=== PATIENT | female | born 1995 | race African-American/Black ===

== ENCOUNTER 2017-03-05 19:57 | Emergency (ER) | payer MEDICAID ==
[~2017-03-05] VITALS: Ht 154.9 cm; Wt 90.0 kg
[2017-03-05 19:59] VITALS: BP 162/72
== END 2017-03-06 01:00 | disposition left against medical advice (07) ==
LOC: ER 21:00
DX: F41.9 Anxiety disorder, unspecified (principal); Z53.21 Procedure and treatment not carried out due to patient leaving prior to being seen by health care provider

== ENCOUNTER 2020-07-22 14:06 | Emergency (ER) | payer MEDICAID ==
[~2020-07-22] VITALS: Ht 154.9 cm; Wt 75.0 kg
[2020-07-22 16:32] LABS: BASOPHILS % 0.6 % (0.0-2.0); EOSINOPHILS % 1.9 % (0.0-5.0); HEMATOCRIT. 38.8 % (36.0-48.0); LYMPHOCYTES % 35.6 % (20.0-50.0); MEAN CORPUSCULAR HEMOGLOBIN 31.1 pg (28.0-32.0); MEAN CORPUSCULAR VOLUME 92.7 fL (81.0-99.0); MEAN PLATELET VOLUME 8.6 fl (7.4-10.4); MONOCYTES % 8.8 % (2.0-8.0); NEUTROPHILS % 53.1 % (40.0-76.0); PLATELET 291 x1000/uL (130-400); RED BLOOD CELL COUNT 4.19 mill/uL (4.2-5.4); RED CELL DISTRIBUTION WIDTH 13.5 % (11.6-14.6)
[2020-07-22 16:37] LABS: CHLORIDE 106 mEq/L (98-107)
[2020-07-22 16:48] LABS: B-HCG QUANTITATIVE 133 mIU/mL (<3)
[2020-07-22 18:24] VITALS: BP 117/68
== END 2020-07-22 18:06 | disposition home or self-care (01) ==
LOC: ER 14:06
DX: O26.851 Spotting complicating pregnancy, first trimester (principal); Z3A.01 Less than 8 weeks gestation of pregnancy
CPT/HCPCS: 36415; 76801; 80053; 81025; 84702; 85025; 86850; 86900; 93005; 99285

== ENCOUNTER 2020-07-30 06:43 | Emergency (ER) | payer MEDICAID ==
[~2020-07-30] VITALS: Ht 154.9 cm; Wt 77.0 kg
[2020-07-30 08:56] LABS: BASOPHILS % 0.5 % (0.0-2.0); EOSINOPHILS % 3.1 % (0.0-5.0); HEMATOCRIT. 39.9 % (36.0-48.0); HEMOGLOBIN. 13.3 g/dL (12.0-16.0); MEAN CORPUSCULAR HEMOGLOBIN 31.3 pg (28.0-32.0); MEAN CORPUSCULAR VOLUME 93.8 fL (81.0-99.0); MEAN PLATELET VOLUME 8.1 fl (7.4-10.4); MONOCYTES % 13.1 % (2.0-8.0); NEUTROPHILS % 58.3 % (40.0-76.0); PLATELET 307 x1000/uL (130-400); RED BLOOD CELL COUNT 4.26 mill/uL (4.2-5.4); RED CELL DISTRIBUTION WIDTH 13.9 % (11.6-14.6)
[2020-07-30 09:07] LABS: CHLORIDE 107 mEq/L (98-107)
[2020-07-30 09:21] LABS: B-HCG QUANTITATIVE 105 mIU/mL (<3)
[2020-07-30 09:56] VITALS: BP 116/70
[2020-07-30 10:04] LABS: CLARITY URINE CLOUDY (CLEAR); COLOR URINE YELLOW (YELLOW); KETONES URINE NEGATIVE (NEGATIVE); LEUKOCYTE ESTERASE URINE 1+ (NEGATIVE); NITRITE URINE NEGATIVE (NEGATIVE); OCCULT BLOOD URINE 3+ (NEGATIVE); PROTEIN URINE TRACE (NEGATIVE); SPECIFIC GRAVITY URINE 1.024 (1.005-1.030); UROBILINOGEN URINE 0.2 E.U./dL (0.2-1.0)
== END 2020-07-30 09:58 | disposition home or self-care (01) ==
LOC: ER 06:43
DX: O03.9 Complete or unspecified spontaneous abortion without complication (principal); J45.909 Unspecified asthma, uncomplicated; F15.10 Other stimulant abuse, uncomplicated; F14.10 Cocaine abuse, uncomplicated; F12.10 Cannabis abuse, uncomplicated; Z90.89 Acquired absence of other organs
CPT/HCPCS: 36415; 76801; 80053; 81003; 81025; 84702; 85025; 86850; 86900; 93005; 99285

== ENCOUNTER 2020-10-28 09:15 | Emergency (ER) | payer MEDICAID ==
[~2020-10-28] VITALS: Ht 154.9 cm; Wt 83.0 kg
[2020-10-28 10:37] VITALS: BP 107/61
[2020-10-28 10:51] LABS: HCG SCREEN NEGATIVE
== END 2020-10-28 11:14 | disposition home or self-care (01) ==
LOC: ER 09:15
DX: Z32.02 Encounter for pregnancy test, result negative (principal); R03.0 Elevated blood-pressure reading, without diagnosis of hypertension; J45.909 Unspecified asthma, uncomplicated; F14.10 Cocaine abuse, uncomplicated; F15.10 Other stimulant abuse, uncomplicated; F12.90 Cannabis use, unspecified, uncomplicated; Z98.890 Other specified postprocedural states
CPT/HCPCS: 81025; 84703; 99283

== ENCOUNTER 2020-12-09 19:19 | Emergency (ER) | payer MEDICAID ==
[~2020-12-09] VITALS: Ht 154.9 cm; Wt 75.0 kg
[2020-12-09 20:30] VITALS: BP 115/69
[2020-12-09 20:31] LABS: CLARITY URINE CLEAR (CLEAR); COLOR URINE YELLOW (YELLOW); KETONES URINE NEGATIVE (NEGATIVE); LEUKOCYTE ESTERASE URINE NEGATIVE (NEGATIVE); NITRITE URINE NEGATIVE (NEGATIVE); OCCULT BLOOD URINE NEGATIVE (NEGATIVE); PROTEIN URINE NEGATIVE (NEGATIVE); SPECIFIC GRAVITY URINE 1.029 (1.005-1.030)
== END 2020-12-09 21:13 | disposition home or self-care (01) ==
LOC: ER 19:19
DX: Z32.01 Encounter for pregnancy test, result positive (principal); J45.909 Unspecified asthma, uncomplicated; F14.10 Cocaine abuse, uncomplicated; F12.10 Cannabis abuse, uncomplicated; F15.10 Other stimulant abuse, uncomplicated; Z90.89 Acquired absence of other organs
CPT/HCPCS: 81003; 81025; 99283

== ENCOUNTER 2020-12-18 14:07 | Emergency (ER) | payer MEDICAID ==
[~2020-12-18] VITALS: Ht 154.9 cm; Wt 74.5 kg
[2020-12-18 19:29] LABS: BASOPHILS % 0.9 % (0.0-2.0); EOSINOPHILS % 2.2 % (0.0-5.0); HEMATOCRIT. 37.6 % (36.0-48.0); HEMOGLOBIN. 12.7 g/dL (12.0-16.0); LYMPHOCYTES % 31.5 % (20.0-50.0); MEAN CORPUSCULAR HEMOGLOBIN 31.3 pg (28.0-32.0); MEAN CORPUSCULAR VOLUME 92.4 fL (81.0-99.0); MEAN PLATELET VOLUME 7.6 fl (7.4-10.4); MONOCYTES % 9.6 % (2.0-8.0); NEUTROPHILS % 55.8 % (40.0-76.0); PLATELET 308 x1000/uL (130-400); RED BLOOD CELL COUNT 4.07 mill/uL (4.2-5.4); RED CELL DISTRIBUTION WIDTH 13.9 % (11.6-14.6)
[2020-12-18 19:39] LABS: CHLORIDE 108 mEq/L (98-107)
[2020-12-18 19:52] LABS: B-HCG QUANTITATIVE 354 mIU/mL (<3)
[2020-12-18 21:15] VITALS: BP 111/59
== END 2020-12-18 21:32 | disposition home or self-care (01) ==
LOC: ER 14:07
DX: O46.91 Antepartum hemorrhage, unspecified, first trimester (principal); O99.511 Diseases of the respiratory system complicating pregnancy, first trimester; Z3A.01 Less than 8 weeks gestation of pregnancy; F14.10 Cocaine abuse, uncomplicated; F12.10 Cannabis abuse, uncomplicated; F15.10 Other stimulant abuse, uncomplicated
CPT/HCPCS: 36415; 76801; 80053; 81025; 84702; 85025; 86850; 86900; 99284

== ENCOUNTER 2020-12-20 09:58 | Emergency (ER) | payer MEDICAID ==
[~2020-12-20] VITALS: Ht 154.9 cm; Wt 74.0 kg
[2020-12-20 10:04] VITALS: BP 116/65
== END 2020-12-20 12:17 | disposition home or self-care (01) ==
LOC: ER 10:21
DX: O20.0 Threatened abortion (principal); O99.511 Diseases of the respiratory system complicating pregnancy, first trimester; Z3A.01 Less than 8 weeks gestation of pregnancy; F14.10 Cocaine abuse, uncomplicated; F12.10 Cannabis abuse, uncomplicated; F15.10 Other stimulant abuse, uncomplicated
CPT/HCPCS: 36415; 76830; 76856; 84702; 99284

== ENCOUNTER 2021-01-27 14:14 | Emergency (ER) | payer MEDICAID ==
[~2021-01-27] VITALS: Ht 154.9 cm; Wt 78.0 kg
[2021-01-27 14:19] VITALS: BP 119/64
[2021-01-27 15:57] LABS: CLARITY URINE CLEAR (CLEAR); COLOR URINE YELLOW (YELLOW); KETONES URINE TRACE (NEGATIVE); LEUKOCYTE ESTERASE URINE NEGATIVE (NEGATIVE); NITRITE URINE NEGATIVE (NEGATIVE); OCCULT BLOOD URINE NEGATIVE (NEGATIVE); PH URINE 6.5 (4.5-8.0); PROTEIN URINE NEGATIVE (NEGATIVE); SPECIFIC GRAVITY URINE 1.024 (1.005-1.030); UROBILINOGEN URINE 0.2 E.U./dL (0.2-1.0)
[2021-01-27 16:30] LABS: BASOPHILS % 1.2 % (0.0-2.0); EOSINOPHILS % 4.2 % (0.0-5.0); HEMATOCRIT. 36.4 % (36.0-48.0); HEMOGLOBIN. 12.7 g/dL (12.0-16.0); LYMPHOCYTES % 45.7 % (20.0-50.0); MEAN CORPUSCULAR HEMOGLOBIN 31.4 pg (28.0-32.0); MEAN CORPUSCULAR VOLUME 90.1 fL (81.0-99.0); MEAN PLATELET VOLUME 7.5 fl (7.4-10.4); MONOCYTES % 9.9 % (2.0-8.0); PLATELET 288 x1000/uL (130-400); RED BLOOD CELL COUNT 4.04 mill/uL (4.2-5.4); RED CELL DISTRIBUTION WIDTH 13.9 % (11.6-14.6)
[2021-01-27 16:35] LABS: CHLORIDE 107 mEq/L (98-107)
[2021-01-27 16:47] LABS: B-HCG QUANTITATIVE < 1 mIU/mL (<3)
[2021-01-27] MEDS ORDERED: CEPH500T MT (17:17)
[2021-01-27] MEDS ORDERED: IBUP-2029 PO (17:17)
== END 2021-01-27 17:33 | disposition home or self-care (01) ==
LOC: ER 15:16
DX: N61.0 Mastitis without abscess (principal); F14.10 Cocaine abuse, uncomplicated; F12.10 Cannabis abuse, uncomplicated; F15.10 Other stimulant abuse, uncomplicated; Z32.02 Encounter for pregnancy test, result negative
CPT/HCPCS: 36415; 80048; 81003; 81025; 84702; 85025; 99283

== ENCOUNTER 2022-03-04 03:13 | Inpatient (IN) | payer MEDICAID ==
[~2022-03-04] VITALS: Ht 162.6 cm; Wt 97.1 kg
[~2022-03-04 03:13] MED LIST: CEPH500T MT; IBUP-2029 PO
[2022-03-04] MEDS ORDERED: CARBOPROST TROMETHAMINE 250 MCG/ML AMPUL IM PRN (04:30)
[2022-03-04] MEDS ORDERED: METHYLERGONOVINE MALEATE 0.2 MG/ML IM PRN (04:30)
[2022-03-04] MEDS ORDERED: MISOPROSTOL 100MCG TABLET VG SCH (04:30)
[2022-03-04] MEDS ORDERED: BUTORPHANOL TARTRATE 2 MG/ML VIAL IV PRN (04:30)
[2022-03-04] MEDS ORDERED: LIDOCAINE HCL 1% 20ML VIAL (Pyxis) INJ INFIL SCH (04:30)
[2022-03-04] MEDS ORDERED: NALOXONE HCL 0.4 MG/ML 1ML VIAL IM PRN (04:30)
[2022-03-04] MEDS ORDERED: LACTATED RINGERS 1,000 ML IV SCH (04:45)
[2022-03-04] MEDS ORDERED: PNV1TABL76 PO (04:45)
[2022-03-04] MEDS ORDERED: PENICILLIN G POTASSIUM 5 MMU in DEXT 5% WATER 100 ML IV NR (05:00)
[2022-03-04 05:34] LABS: BASOPHILS % 0.4 % (0.0-2.0); EOSINOPHILS % 2.2 % (0.0-5.0); HEMATOCRIT. 34.8 % (36.0-48.0); HEMOGLOBIN. 11.6 g/dL (12.0-16.0); LYMPHOCYTES % 18.8 % (20.0-50.0); MEAN CORPUSCULAR HEMOGLOBIN 29.5 pg (28.0-32.0); MEAN CORPUSCULAR VOLUME 88.6 fL (81.0-99.0); MEAN PLATELET VOLUME 7.5 fl (7.4-10.4); MONOCYTES % 8.7 % (2.0-8.0); NEUTROPHILS % 69.9 % (40.0-76.0); PLATELET 325 x1000/uL (130-400); RED BLOOD CELL COUNT 3.93 mill/uL (4.2-5.4); RED CELL DISTRIBUTION WIDTH 14.6 % (11.6-14.6)
[2022-03-04 05:41] LABS: INR 0.9; PARTIAL THROMBOPLASTIN TIME 30.9 sec (23.4-31.0); PROTHROMBIN TIME 10.1 sec (9.6-11.0)
[2022-03-04 05:50] LABS: *AMPHETAMINES SCREEN URINE NEGATIVE (NEGATIVE); *BARBITURATES SCREEN URINE NEGATIVE (NEGATIVE); *BENZODIAZEPINES SCREEN URINE NEGATIVE (NEGATIVE); *COCAINE SCREEN URINE NEGATIVE (NEGATIVE); CANNABINOID URINE SCREEN NEGATIVE (NEGATIVE); METHADONE URINE SCREEN NEGATIVE (NEGATIVE); OPIATES URINE SCREEN NEGATIVE (NEGATIVE); PHENCYCLIDINE URINE SCREEN NEGATIVE (NEGATIVE)
[2022-03-04 06:11] LABS: HEPATITIS B SURFACE ANTIGEN NEGATIVE
[2022-03-04 06:39] LABS: CLARITY URINE CLEAR (CLEAR); COLOR URINE YELLOW (YELLOW); KETONES URINE TRACE (NEGATIVE); PH URINE 6.5 (4.5-8.0); PROTEIN URINE 1+ (NEGATIVE); SPECIFIC GRAVITY URINE 1.026 (1.005-1.030)
[2022-03-04 06:40] LABS: LEUKOCYTE ESTERASE URINE NEGATIVE (NEGATIVE); NITRITE URINE NEGATIVE (NEGATIVE); OCCULT BLOOD URINE NEGATIVE (NEGATIVE)
[2022-03-04] MEDS: OXYTOCIN 30 UNITS/500ML NS PMX 500 ML IV SCH ×2 (07:32→12:20)
[2022-03-04] MEDS ORDERED: PENICILLIN G POTASSIUM 2.5 MMU in DEXTROSE 5% WATER 50 ML IV SCH (09:00)
[2022-03-04] MEDS ORDERED: GLYCERIN/WITCH HAZEL LEAF MEDICATED PAD TOP PRN (10:00)
[2022-03-04] MEDS ORDERED: BISACODYL 10MG SUPP PR PRN (10:00)
[2022-03-04] MEDS ORDERED: ACETAMINOPHEN WITH CODEINE 300/30MG TABLET PO PRN (10:00)
[2022-03-04] MEDS ORDERED: HEMORRHOIDAL SUPP PR PRN (10:00)
[2022-03-04] MEDS ORDERED: IBUPROFEN 400MG TABLET PO PRN (10:00)
[2022-03-04] MEDS ORDERED: OXYTOCIN 30 UNITS/500ML NS PMX 500 ML IV SCH (10:00)
[2022-03-04] MEDS ORDERED: LANOLIN OINT 7GM TUBE TOP PRN (10:00)
[2022-03-04] MEDS ORDERED: DIPHENHYDRAMINE 25MG CAPSULE PO PRN (10:00)
[2022-03-04] MEDS ORDERED: NALOXONE HCL 0.4MG/ML VIAL IV PRN (10:30)
[2022-03-04 14:30] VITALS: BP 123/71
[2022-03-04] MEDS: IBUPROFEN 800MG TABLET PO PRN ×2 (15:18→21:38)
[2022-03-04 19:30] VITALS: BP 104/68
[2022-03-04] MEDS ORDERED: DOCUSATE SODIUM 100MG CAPSULE PO SCH (21:00)
[2022-03-04] MEDS: SIMETHICONE 80MG TABLET CHEW PO SCH (21:37)
[2022-03-05 04:00] VITALS: BP 108/59
[2022-03-05 06:35] LABS: BASOPHILS % 0.4 % (0.0-2.0); EOSINOPHILS % 2.2 % (0.0-5.0); HEMATOCRIT. 33.7 % (36.0-48.0); HEMOGLOBIN. 11.2 g/dL (12.0-16.0); LYMPHOCYTES % 20.6 % (20.0-50.0); MEAN CORPUSCULAR HEMOGLOBIN 29.4 pg (28.0-32.0); MEAN CORPUSCULAR VOLUME 88.8 fL (81.0-99.0); MEAN PLATELET VOLUME 6.9 fl (7.4-10.4); MONOCYTES % 9.4 % (2.0-8.0); NEUTROPHILS % 67.4 % (40.0-76.0); PLATELET 301 x1000/uL (130-400); RED BLOOD CELL COUNT 3.79 mill/uL (4.2-5.4); RED CELL DISTRIBUTION WIDTH 14.6 % (11.6-14.6)
[2022-03-05] MEDS ORDERED: FERROUS SULFATE 325MG TABLET PO SCH (07:30)
[2022-03-05] MEDS: IBUPROFEN 800MG TABLET PO PRN (08:41)
[2022-03-05] MEDS ORDERED: PRENATAL VIT/FE FUMARATE/FA TABLET PO SCH (09:00)
[2022-03-05] MEDS: SIMETHICONE 80MG TABLET CHEW PO SCH (09:00)
[2022-03-05 10:56] VITALS: BP 114/64
== END 2022-03-05 12:00 | disposition home or self-care (01) | DRG 560 ==
LOC: OBSVTOIN 03:13 → 8 EST LDRP 03:13 → 8EST 14:30
PROVIDERS: ADMIT Obstetrics & Gynecology; ATTEND Obstetrics & Gynecology
PROC: 10E0XZZ Delivery of Products of Conception, External Approach (ICD-10-PCS; principal; 2022-03-04)
DX: O75.89 Other specified complications of labor and delivery (principal); Z37.0 Single live birth; B00.9 Herpesviral infection, unspecified; O99.52 Diseases of the respiratory system complicating childbirth; J45.909 Unspecified asthma, uncomplicated; R87.612 Low grade squamous intraepithelial lesion on cytologic smear of cervix (LGSIL); Z72.0 Tobacco use; Z3A.40 40 weeks gestation of pregnancy; Z20.822 Contact with and (suspected) exposure to COVID-19; Z86.59 Personal history of other mental and behavioral disorders
CPT/HCPCS: 36415; 76815; 80305; 81003; 85025; 86592; 86703; 86762; 86850; 86900; 87340; 87426; 99281; J0595; J2540; J7060; J7120; J2590

== ENCOUNTER 2023-02-05 20:09 | Inpatient (IN) | payer MEDICAID, OTHER ==
[~2023-02-05] VITALS: Ht 154.9 cm; Wt 89.8 kg
[~2023-02-05 20:09] MED LIST changes: +PNV1TABL76 PO
[2023-02-05] MEDS ORDERED: CARBOPROST TROMETHAMINE 250 MCG/ML AMPUL IM PRN (21:15)
[2023-02-05] MEDS ORDERED: MISOPROSTOL 100MCG TABLET RC SCH (21:15)
[2023-02-05] MEDS ORDERED: OXYTOCIN 30 UNITS/500ML NS PMX 500 ML IV SCH (21:15)
[2023-02-05] MEDS ORDERED: METHYLERGONOVINE MALEATE 0.2 MG/ML IM PRN (21:15)
[2023-02-05] MEDS ORDERED: NALOXONE HCL 0.4 MG/ML 1ML VIAL IM PRN (21:15)
[2023-02-05] MEDS ORDERED: LIDOCAINE HCL 1% 20ML VIAL (Pyxis) INJ INFIL SCH (21:15)
[2023-02-05 21:57] LABS: BASOPHILS % 0.2 % (0.0-2.0); EOSINOPHILS % 1.3 % (0.0-5.0); HEMATOCRIT. 34.4 % (36.0-48.0); HEMOGLOBIN. 11.6 g/dL (12.0-16.0); LYMPHOCYTES % 18.7 % (20.0-50.0); MEAN CORPUSCULAR HEMOGLOBIN 30.3 pg (28.0-32.0); MEAN CORPUSCULAR VOLUME 89.7 fL (81.0-99.0); MEAN PLATELET VOLUME 8.2 fl (7.4-10.4); MONOCYTES % 6.9 % (2.0-8.0); NEUTROPHILS % 72.9 % (40.0-76.0); PLATELET 303 x1000/uL (130-400); RED BLOOD CELL COUNT 3.83 mill/uL (4.2-5.4); RED CELL DISTRIBUTION WIDTH 14.2 % (11.6-14.6)
[2023-02-05] MEDS: LACTATED RINGERS 1,000 ML IV SCH ×2 (21:58→22:44)
[2023-02-05 22:01] LABS: CLARITY URINE CLEAR (CLEAR); COLOR URINE YELLOW (YELLOW); KETONES URINE TRACE (NEGATIVE); LEUKOCYTE ESTERASE URINE 3+ (NEGATIVE); NITRITE URINE NEGATIVE (NEGATIVE); OCCULT BLOOD URINE 2+ (NEGATIVE); PH URINE 6.5 (4.5-8.0); PROTEIN URINE NEGATIVE (NEGATIVE); UROBILINOGEN URINE 0.2 E.U./dL (0.2-1.0)
[2023-02-05 22:05] LABS: INR 0.9; PARTIAL THROMBOPLASTIN TIME 30.8 sec (23.4-31.0)
[2023-02-05 22:20] LABS: *AMPHETAMINES SCREEN URINE NEGATIVE (NEGATIVE); *BARBITURATES SCREEN URINE NEGATIVE (NEGATIVE); *BENZODIAZEPINES SCREEN URINE NEGATIVE (NEGATIVE); *COCAINE SCREEN URINE NEGATIVE (NEGATIVE); METHADONE URINE SCREEN NEGATIVE (NEGATIVE); OPIATES URINE SCREEN NEGATIVE (NEGATIVE); PHENCYCLIDINE URINE SCREEN NEGATIVE (NEGATIVE)
[2023-02-05 22:23] LABS: CANNABINOID URINE SCREEN PRESUMTIVE POSITIVE (NEGATIVE)
[2023-02-05 22:37] LABS: HEPATITIS B SURFACE ANTIGEN NEGATIVE
[2023-02-06] MEDS: LACTATED RINGERS 1,000 ML IV SCH (03:29)
[2023-02-06] MEDS ORDERED: ONDANSETRON HCL 4MG/2ML INJ ONE (05:16)
[2023-02-06] MEDS ORDERED: OXYTOCIN 10 UNITS/ML 1ML ONE ×2 (05:16→05:17)
[2023-02-06] MEDS ORDERED: CEFAZOLIN SODIUM 1000MG/VIAL ONE (05:16)
[2023-02-06] MEDS ORDERED: MORPHINE SULFATE/PF 1MG/ML 10ML AMP ONE (05:17)
[2023-02-06] MEDS ORDERED: PHENYLEPHRINE HCL 10 MG/ML 1ML (IV VIAL) IV ONE (05:17)
[2023-02-06] MEDS ORDERED: EPHEDRINE SULFATE 50MG/ML VIAL ONE (05:17)
[2023-02-06] MEDS ORDERED: FENTANYL CITRATE/PF 50MCG/ML 2ML VIAL ONE (05:17)
[2023-02-06] MEDS ORDERED: SODIUM CHLORIDE 0.9% 10ML VIAL ONE (05:22)
[2023-02-06] MEDS ORDERED: MIDAZOLAM HCL 2 MG/2 ML VIAL ONE (06:13)
[2023-02-06] MEDS ORDERED: DIPHENHYDRAMINE 50MG/ML VIAL ONE (06:22)
[2023-02-06] MEDS ORDERED: FENTANYL CITRATE/PF 50MCG/ML 2ML VIAL IV PRN (06:30)
[2023-02-06] MEDS ORDERED: NALOXONE HCL 0.4 MG/ML 1ML VIAL IV PRN (06:30)
[2023-02-06] MEDS ORDERED: MORPHINE SULFATE 10 MG/ML CPJ IV PRN (06:30)
[2023-02-06] MEDS ORDERED: LANOLIN OINT 7GM TUBE TOP PRN (06:45)
[2023-02-06] MEDS ORDERED: HYDROCODONE/ACETAMINOPHEN 5/325MG TABLET PO PRN (06:45)
[2023-02-06] MEDS ORDERED: BISACODYL 10MG SUPP PR PRN (06:45)
[2023-02-06] MEDS ORDERED: IBUPROFEN 400MG TABLET PO PRN (06:45)
[2023-02-06] MEDS ORDERED: DEXT 5%/LACTATED RINGERS 1,000 ML IV SCH (06:45)
[2023-02-06] MEDS ORDERED: OXYTOCIN 30 UNITS/500ML NS PMX 500 ML IV SCH (06:45)
[2023-02-06] MEDS ORDERED: DIPHENHYDRAMINE 25MG CAPSULE PO PRN (06:45)
[2023-02-06] MEDS ORDERED: ONDANSETRON HCL 4MG/2ML INJ IV PRN (06:45)
[2023-02-06] MEDS ORDERED: DIPHENHYDRAMINE 50MG/ML VIAL IV NR (08:30)
[2023-02-06] MEDS ORDERED: PRENATAL VIT/FE FUMARATE/FA TABLET PO SCH (09:00)
[2023-02-06 10:00] VITALS: BP 101/47
[2023-02-06 10:15] VITALS: BP 99/47
[2023-02-06 10:30] VITALS: BP 100/49
[2023-02-06] MEDS: KETOROLAC 30MG/ML VIAL IV SCH ×2 (12:34→18:17)
[2023-02-06] MEDS: SIMETHICONE 80MG TABLET CHEW PO SCH ×3 (13:00→20:06)
[2023-02-06 16:56] VITALS: BP 103/53
[2023-02-06 19:30] VITALS: BP 96/54
[2023-02-06] MEDS ORDERED: DOCUSATE SODIUM 100MG CAPSULE PO SCH (21:00)
[2023-02-06 23:40] VITALS: BP 106/50
[2023-02-07] MEDS: IBUPROFEN 800MG TABLET PO PRN ×2 (00:47→10:13)
[2023-02-07 03:30] VITALS: BP 105/55
[2023-02-07 05:58] LABS: BASOPHILS % 0.3 % (0.0-2.0); HEMATOCRIT. 31.6 % (36.0-48.0); HEMOGLOBIN. 10.5 g/dL (12.0-16.0); LYMPHOCYTES % 14.5 % (20.0-50.0); MEAN CORPUSCULAR HEMOGLOBIN 30.2 pg (28.0-32.0); MEAN CORPUSCULAR VOLUME 90.8 fL (81.0-99.0); MEAN PLATELET VOLUME 7.9 fl (7.4-10.4); MONOCYTES % 8.8 % (2.0-8.0); NEUTROPHILS % 75.4 % (40.0-76.0); PLATELET 264 x1000/uL (130-400); RED BLOOD CELL COUNT 3.49 mill/uL (4.2-5.4); RED CELL DISTRIBUTION WIDTH 14.2 % (11.6-14.6)
[2023-02-07] MEDS ORDERED: FERROUS SULFATE 325MG TABLET PO SCH (07:30)
[2023-02-07 08:00] VITALS: BP 105/66
[2023-02-07] MEDS: SIMETHICONE 80MG TABLET CHEW PO SCH (10:12)
[2023-02-07 10:13] VITALS: BP 105/66
== END 2023-02-07 13:40 | disposition left against medical advice (07) | DRG 540 ==
LOC: 8 EST LDRP 20:09 → OBSVTOIN 20:09 → 8EST 02-06 10:30
PROVIDERS: ADMIT Specialist; ATTEND Specialist
PROC: 10D00Z1 Extraction of Products of Conception, Low, Open Approach (ICD-10-PCS; principal; 2023-02-06)
DX: O76 Abnormality in fetal heart rate and rhythm complicating labor and delivery (principal); D62 Acute posthemorrhagic anemia; Z20.822 Contact with and (suspected) exposure to COVID-19; Z37.0 Single live birth; O98.52 Other viral diseases complicating childbirth; O99.214 Obesity complicating childbirth; O99.52 Diseases of the respiratory system complicating childbirth; Z3A.39 39 weeks gestation of pregnancy; Z53.29 Procedure and treatment not carried out because of patient's decision for other reasons; J45.909 Unspecified asthma, uncomplicated; O99.02 Anemia complicating childbirth; F17.210 Nicotine dependence, cigarettes, uncomplicated; B00.9 Herpesviral infection, unspecified; Z82.5 Family history of asthma and other chronic lower respiratory diseases
CPT/HCPCS: 36415; 76805; 76815; 80305; 80349; 81003; 85025; 86592; 86703; 86762; 86850; 86900; 87340; 87426; 88307; 99281; G0378; J0690; J1200; J1885; J2250; J2274; J2370; J2405; J3010; J3490; J7121; Q0163; J2590

== ENCOUNTER 2025-07-14 23:10 | Emergency (ER) | payer MEDICAID ==
[~2025-07-14] VITALS: Ht 154.9 cm; Wt 96.4 kg
[~2025-07-14 23:10] MED LIST changes: +IBUP-1455 PO; -IBUP-2029 PO
[2025-07-14 23:18] VITALS: O2SAT 100
[2025-07-15] MEDS ORDERED: IBUPROFEN 600MG TABLET PO ONE (00:15)
[2025-07-15] MEDS ORDERED: BACITRACIN ZINC OINT UDPKT TOP ONE (00:15)
[2025-07-15] MEDS ORDERED: LIDOCAINE HCL 1% 20ML VIAL INFIL ONE (00:15)
[2025-07-15] MEDS ORDERED: TETANUS, DIPHTHERIA, PERTUSSIS VAC/PF 0.5ML (>10YR OLD) IM ONE (00:15)
[2025-07-15] MEDS: KETOROLAC 30MG/ML VIAL IM ONE (00:30)
[2025-07-15] MEDS: TETANUS, DIPHTHERIA, PERTUSSIS VAC/PF 0.5ML (>10YR OLD) IM ONE (00:30)
[2025-07-15] MEDS ORDERED: BO1 TP (02:55)
[2025-07-15] MEDS ORDERED: IBUP-1455 MT (02:55)
[2025-07-15 03:05] VITALS: BP 148/88; PULSE 71; RESP 16; TEMP 36.6; O2SAT 100
== END 2025-07-15 03:10 | disposition home or self-care (01) ==
LOC: ER 23:10
DX: S80.12XA Contusion of left lower leg, initial encounter (principal); F12.90 Cannabis use, unspecified, uncomplicated; F15.90 Other stimulant use, unspecified, uncomplicated; F14.90 Cocaine use, unspecified, uncomplicated; Z90.89 Acquired absence of other organs; W19.XXXA Unspecified fall, initial encounter; X58.XXXA Exposure to other specified factors, initial encounter; Y93.89 Activity, other specified; Y92.89 Other specified places as the place of occurrence of the external cause; Y99.8 Other external cause status
CPT/HCPCS: 73552; 73564; 73590; 99284